=== PATIENT | male | born 1985 | race Caucasian/White ===

== ENCOUNTER 2020-01-14 22:16 | Inpatient (IN) | payer MEDICAID, SELFPAY ==
[2020-01-14 22:17] VITALS: BP 123/89; PULSE 96; RESP 18; TEMP 37.1; O2SAT 98; BMI 21.5
--- NOTE | 2020-01-14 22:18 | ECG_ITS ---
Measurements Intervals [place] Rate: 75 P: 68 TN: 135 QRS: 79 QRSD: 110 T: 58 QT: 381 QTc: 426 SINUS RHYTHM POSSIBLE LEFT ATRIAL ENLARGEMENT [-0.1mV P WAVE IN V1/V2] Compared to ECG 08/18/2019 11:44:47 No significant changes Electronically Signed On 01-16-2020 6:38:44 CDT by Jorden Ventura M.D. [email or web address]
--- NOTE | 2020-01-14 22:36 | ED_ITS ---
HPI - Psych General: Chief Complaint: Psychiatric Symptoms Stated Complaint: SI Time Seen by Provider: 01/14/20 22:18 History of Present Illness: HPI Narrative: Jose Daniel is brought in under a 96- hour hold. He is reported to be paranoid, suicidal and violent. Please see the affidavits in his chart for specifics. He presents to the ER for medical clearance. Patient has no complaints or concerns at this time. He denies any ingestions of any type of drugs or overdose. He does admit to some alcohol but not to excess. The patient appears clinically sober at this time. Review of Systems General: Reports: other (negative unless marked) Const: Denies: fever, chills, body aches, fatigue, malaise or diaphoresis Eyes: Denies: change in vision or blurry vision ENMT: Denies: throat pain, painful swallowing, hoarseness, ear pain, ear discharge, Change in hearing or nasal discharge Card: Denies: chest pain, palpitations, irregular heart rhythm, syncope, pre- syncope, shortness of breath on exertion or shortness of breath when lying down Resp: Denies: shortness of breath, productive cough, non-productive cough, wheezing, coughing up blood or chest congestion GI: Denies: abdominal pain, nausea, vomiting, vomiting blood, coffee grounds in vomit, diarrhea, constipation, cramping, blood in stool or black tarry stool : Denies: flank pain, difficulty urinating, painful urination, urinary frequency, urinary urgency, decreased urine ouput, urinary incontinence or blood in urine Musc: Denies: neck pain, back pain, extremity pain, extremity swelling, joint pain, joint swelling, joint warmth or joint stiffness Skin/Breast: Denies: rash, skin tenderness or yellow skin Neuro: Denies: headache, numbness in extremities, weakness in extremities, changes in sensation, lack of coordination, difficulty walking, dizziness, vertigo or confusion Endo: Denies: excessive thirst, tired all the time, cold intolerance, excessive sweating, flushing or hot flashes Meño/Lymph: Denies: easy bruising, easy bleeding, petechiae or enlarged lymph nodes All/Imm: Denies: hives, throat swelling, tongue swelling, facial swelling or acute wheezing PFS ED PFSH: Medical History (Updated 01/14/20 @ 23:35 by Vivien Bunch) No pertinent past medical history Social History Smoking and tobacco status: former smoker Physical Exam Const: COMMON NORMALS: no apparent distress, oriented x3, no limitations, healthy appearing and well nourished EXAM LIMITATIONS: no altered mental status GENERAL APPEARANCE: cooperative, well kempt and well developed ORIENTATION/CONSCIOUSNESS: Yes awake HENMT: COMMON NORMALS: normocephalic, head/scalp atraumatic, hearing grossly normal bilaterally, external ears normal, EAC's normal, external nose normal and moist oral mucous membranes HEAD & SCALP: normal to inspection, normocephalic and atraumatic FACE & SINUS: normal facial exam and face symmetric NOSE: external nose normal and nares normal EXTERNAL EAR: Yes external ears normal EXTERNAL AUDITORY CANAL: EAC's normal MOUTH: oral and palatal mucosa normal and tongue normal Eye: COMMON NORMALS: PERRL, EOMs intact bilaterally, conjunctivae normal and no scleral icterus GENERAL EYE: normal appearance of both eyes and normal light reflex CONJUNCTIVA: Yes conjunctivae normal SCLERA: sclerae normal CORNEA: Yes corneas normal PUPIL: Yes PERRL DIRECT OPHTHALMOSCOPY: Yes normal light reflex Neck/C-Spine: COMMON NORMALS: full ROM, no lymphadenopathy, supple, no meningeal signs and no JVD GENERAL: Yes normal visual inspection and Yes trachea midline CERVICAL SPINE: Yes cervical ROM normal Chest: COMMONS NORMALS: inspection of chest normal and palpation of chest normal Resp: COMMON NORMALS: normal respiratory effort, no retractions, no use of accessory muscles and clear to auscultation bilaterally EFFORT & INSPECTION: Yes able to speak in complete sentences AUSCULTATION: clear to auscultation bilaterally Cardio: COMMON NORMALS: no JVD, regular rate, regular rhythm, S1 normal heart sound, S2 normal heart sound, no gallops, no clicks, no murmurs and no rub JUGULAR VENOUS DISTENTION: no JVD RATE: regular rate RHYTHM: regular rhythm HEART SOUNDS: S1 normal and S2 normal GI: COMMON NORMALS: soft to palpation, non-tender, no hepatosplenomegaly and no masses INSPECTION: Yes normal to inspection PALPATION: Yes soft and Yes no hepatosplenomegaly : COMMON NORMALS: Yes no CVA tenderness BLADDER/KIDNEY EXAM: Yes no CVA tenderness Back/Pelvis: COMMON NORMALS: no CVA tenderness, thoracic and lumbar spine normal to inspection, no thoracic nor lumbar tenderness and thoraco-lumbar ROM normal Extremity: COMMON NORMALS: normal to inspection, full ROM, normal capillary refill, no joint enlargement, no clubbing, cyanosis or edema and no calf tenderness Neuro: COMMON NORMALS: oriented x3, CN's II-XII intact bilaterally, moves all extremities, no focal motor deficits and no sensory deficits noted MENINGEAL SIGNS: Yes no meningeal signs Psych: COMMON NORMALS: mental status grossly normal, thought process normal, cooperative, speech normal and activity/motor behavior normal APPEARANCE: Yes well kempt SPEECH: Yes normal speech MOOD & AFFECT: Yes elevated mood and Yes anxious THOUGHT PROCESS: normal thought process Skin: COMMON NORMALS: no rashes or lesions noted, skin turgor normal, no jaundice, no petechiae and no mottling GENERAL SKIN EXAM: no rashes or lesions noted and turgor normal MDM - Psych MDM Narrative: Medical decision making narrative: The case was reviewed with Dr. Flowers. He understands the patient is under 96-hour hold by the [facility]. He agrees to accept the patient to his service. Patient's liver enzymes are slightly elevated but this is likely due to alcohol there is no evidence of acetaminophen ingestion and the patient adamantly denies that at this time. Lab Data: Attestation: I reviewed the patient's lab results. Labs: Lab Results 01/14/20 01/14/20 01/14/20 Range/Units 22:40 22:40 22:40 WBC 5.3 (4.0-10.0) 10^3/ uL RBC 4.48 (4.1-5.3) 10^6/u L Hgb 13.2 (11.7-16.6) g/dL Hct 41.0 L (42.0-52.0) % MCV 91.5 (80-94) fL MCH 29.5 (28.0-34.0) pg MCHC 32.2 (30.0-36.0) g/dL RDW 12.8 (12.1-15.1) % Plt Count 242 (130-400) 10^3/c mm MPV 11.4 H (7.4-10.4) fL Neut % (Auto) 33.4 % Lymph % (Auto) 54.5 % [place] % (Auto) 7.0 % Eos % (Auto) 4.0 % Baso % (Auto) 0.9 % Neut # (Auto) 1.8 (1.8-7.7) 10^3/u L Lymph # (Auto) 2.9 (0.8-4.8) 10^3/u L [place] # (Auto) 0.4 (0.2-0.9) 10^3/u L Eos # (Auto) 0.2 (0.0-0.8) 10^3/u L Baso # (Auto) 0.1 (0.0-0.1) 10^3/u L Nucleated RBC % (a uto) 0 % Nucleated RBCs # 0.0 /100WBC Sodium 146 H (136-145) mmol/L Potassium 4.2 (3.5-5.1) mmol/L Chloride 105 (98-107) mmol/L Carbon Dioxide 29 (22-29) mmol/L Anion Gap 16.2 (5-19) BUN 9 (6-20) mg/dL Creatinine 0.8 (0.7-1.2) mg/dL GFR Calculation 110.0 (90-130) mL/min Glucose 97 (65-115) mg/dL Calculated Osmolal ity 298 H (285-295) mOsm/k g Calcium 10.1 (8.5-10.5) mg/dL Total Bilirubin 0.4 (0.15-1.2) mg/dL AST 41 H (0-40) U/L ALT 117 H (0-41) U/L Alkaline Phosphata se 69 (40-130) IU/L Total Protein 8.0 (6.6-8.7) g/dL Albumin 5.0 (3.5-5.2) g/dL Globulin 3.0 (1.3-4.6) g/dL TSH 1.17 (0.27-4.20) uIU/ mL Salicylates < 0.3 L (3-10) mg/dL Acetaminophen < 5.0 L (10-30) ug/mL Phenytoin 0.8 L (10-20) ug/mL Valproic Acid 2.8 L (50-100) mcg/mL Carbamazepine 2.0 L (4.0-12.0) ug/mL [place] 0.1 L (0.6-1.2) mmol/L Ethyl Alcohol 116 H (0-10) mg/dL EKG Data^: EKG 1: Attestation: I personally reviewed and interpreted this EKG as follows: EKG interpretation date: 01/14/20 EKG interpretation time: 23:29 Interpretation: Normal sinus rhythm at 75 beats a minute, nonspecific ST-T wave changes, no acute findings. Normal intervals, no blocks. Normal QTC. Discharge Plan Discharge Patient Disposition: Admitted As Inpatient Admit Provider: Giovanny Flowers Clinical Impression: Suicidal ideation, Acute psychosis Condition: Stable Discharge Date/Time: 01/15/20 00:26 Coding Level of Care Code ED Disability Program Navigator for Chg Fwd Exam Comprehensive
[2020-01-14 23:12] LABS: Basophils # 0.1 10^3/uL (0.0-0.1); Basophils % 0.9 %; Eosinophils # 0.2 10^3/uL (0.0-0.8); Hemoglobin 13.2 g/dL (11.7-16.6); Lymphocytes # 2.9 10^3/uL (0.8-4.8); Lymphocytes % 54.5 %; Mean Corpuscular HGB Conc 32.2 g/dL (30.0-36.0); Mean Corpuscular Hemoglobin 29.5 pg (28.0-34.0); Mean Corpuscular Volume 91.5 fL (80-94); Mean Platelet Volume 11.4 fL (7.4-10.4); Monocytes # 0.4 10^3/uL (0.2-0.9); Neutrophils # 1.8 10^3/uL (1.8-7.7); Neutrophils % 33.4 %; Nucleated Red Blood Cells % 0 %; Platelet Count 242 10^3/cmm (130-400); Red Blood Count 4.48 10^6/uL (4.1-5.3); Red Cell Distribution Width 12.8 % (12.1-15.1); White Blood Count 5.3 10^3/uL (4.0-10.0)
[2020-01-14 23:13] LABS: Lithium 0.1 mmol/L (0.6-1.2)
[2020-01-14 23:16] LABS: Alanine Aminotransferase 117 U/L (0-41); Alcohol Level 116 mg/dL (0-10); Alkaline Phosphatase 69 IU/L (40-130); Anion Gap 16.2 (5-19); Aspartate Amino Transferase 41 U/L (0-40); Blood Urea Nitrogen 9 mg/dL (6-20); Calcium 10.1 mg/dL (8.5-10.5); Carbon Dioxide 29 mmol/L (22-29); Chloride 105 mmol/L (98-107); Glucose 97 mg/dL (65-115); Osmolality Calculated 298 mOsm/kg (285-295); Phenytoin Dilantin 0.8 ug/mL (10-20); Potassium 4.2 mmol/L (3.5-5.1); Sodium 146 mmol/L (136-145); Thyroid Stimulating Hormone 1.17 uIU/mL (0.27-4.20); Total Bilirubin 0.4 mg/dL (0.15-1.2); Valproic Acid Level 2.8 mcg/mL (50-100)
[2020-01-14 23:17] LABS: Acetaminophen < 5.0 ug/mL (10-30); Salicylate < 0.3 mg/dL (3-10)
[2020-01-15 00:25] VITALS: BP 114/47; PULSE 81; RESP 18; TEMP 36.7; O2SAT 96
[2020-01-15 01:13] LABS: Amphetamines Screen Urine Negative (Negative); Barbiturates Screen Urine Negative (Negative); Benzodiazepines Screen Urine Negative (Negative); Cocaine Screen Urine Negative (Negative); Opiate Screen Urine Negative (Negative); PCP Screen Urine Negative (Negative); THC Screen Urine Negative (Negative)
[2020-01-15 06:00] VITALS: BP 123/86; PULSE 64; RESP 16; TEMP 36.6; O2SAT 96
[2020-01-15 07:04] LABS: Alanine Aminotransferase 93 U/L (0-41); Albumin Level 4.4 g/dL (3.5-5.2); Alkaline Phosphatase 61 IU/L (40-130); Anion Gap 13.1 (5-19); Aspartate Amino Transferase 32 U/L (0-40); Blood Urea Nitrogen 10 mg/dL (6-20); Calcium 9.3 mg/dL (8.5-10.5); Carbon Dioxide 30 mmol/L (22-29); Chloride 103 mmol/L (98-107); Globulin 2.4 g/dL (1.3-4.6); Glucose 95 mg/dL (65-115); Osmolality Calculated 290 mOsm/kg (285-295); Potassium 4.1 mmol/L (3.5-5.1); Sodium 142 mmol/L (136-145); Total Bilirubin 0.5 mg/dL (0.15-1.2); Total Protein 6.8 g/dL (6.6-8.7)
--- NOTE | 2020-01-15 10:06 | PM.NHP ---
Providers/Chief Complaint Admitting Physician: Giovanny Flowers MD Chief Complaint: SI HPI NPU History of Present Illness Jose Daniel Hogan is a 34 year old male who presents today reporting that he does not know why he is here. He reports that he lives in a house with his mom and his children, and that the reason why he thinks conflict was started was because his brother recently came home from longterm and has been coming around. And since his daughter got taken away from her mother and placed with his mother, he has felt a lot of responsibility to make sure there are not negative influences around them. The emergency room, however, identified that he is having an experience somewhat like his last experience here, wherein he was feeling some weird electricity charges and thinking they were coming through his body and recently, reportedly, he has been taking wires out of cars in some response to this. He does not acknowledge any of this reality. He reports that his brother had not been around so he thought things were going better, but he has a sister that, he reports, is an instigator and she was getting in the middle of everything and interrupting their plans. He said his children need to go over to [facility] [place] to be evaluated. He reports that he is not sure what happened the last time he was here. He denies any symptoms and denies any changes in his current status. We reviewed his last note from July of 2019 and excerpts can be found below; he identifies there have been no significant changes in his psycho-social circumstances and that those excerpts are a factual representation of his current circumstance. PSYCHIATRIC HISTORY: As above. He reports that he has had a couple of hospitalizations, this may be the second or third, but he is not sure. He denies ever really being on significant medications. SUBSTANCE ABUSE HISTORY: He denies. He reports that he does not smoke or drink alcohol, or anything of that nature, however, it is worth noting that his blood alcohol level was 116, but he was not positive for amphetamines, as he had been at his last visit in July. FAMILY HISTORY: He denies any significant mental health history in his family. DEVELOPMENTAL HISTORY: He denies any issues. He reports that he learned how to walk and talk and met all developmental milestones on time. He denies speech therapy, learning support, emotional support, or special education classes. PSYCHOSOCIAL HISTORY: He reports his parents were together until he was 3 years old. He reports that they had seven children together. He reports his childhood was fine. He reports the highest grade he achieved was the eighth grade, and he has never gotten his GED. He endorses being a heterosexual, with his longest relationship being eleven years. He has been three time, twice to the same woman, and twice. He endorses he has three daughters, ages 15, 13, and 10, and a son who is 4 years old, all of whom are with him. He has never been in the . He denies any latter-day belief system. He reports that his longest job was in [employer] for about eight or nine yers. He reports he lives in a house with his mother and four children LEGAL HISTORY: He reports he has been to care home more times than he could count. Per his last [facility] [place] [facility] visit: Discharge Summary Date of Admission: Aug 18, 2019 at 05:14 Discharge Date: Aug 20, 2019 Attending Physician: Darci Sepulveda MD Consulting Physician(s): Admission Diagnosis: Amphetamine intoxication Other Discharge Diagnoses: Amphetamine intoxication?resolved Brief History: History of present illness: Jose Daniel Hogan is a 34-year-old man who is encountered laying in his bed on the Neuropsych Unit fast asleep. He is resting comfortably and in no apparent distress. However he is unarousable either by verbal or mechanical stimuli. Information about the patient is limited to that below: There are no collateral records in the medical record. There is no emergency room note. There is an affidavit for commitment in his chart that reads as follows: On 08/18/2019, myself and deputy Callie Noyola respond to her residence in [place] and made contact with Ben. Ben was attempting to forcefully put a yellow ball up his rectum. Jono stated he must do this to stop the electrical charge going through him. Ben was sweating profusely and appeared to be heavily under the influence. Jose Daniel made several statements that lead me to believe he was hallucinating. A family member of Ben's believed he consumed a large amount of prescription medications. Hospital Course: Patient states that he is doing fine today. He says that he occasionally uses methamphetamine but it is not a problem for him. He denies symptoms of amphetamine intoxication or withdrawal. In reviewing reasons for him being in the hospital, he did not want to hear what was written down on his affidavits. He seemed embarrassed at that point. By his report, he was cleansing his colon. He said that he was responding to a challenge by a another friend or family member. He was in the process of cleaning his colon. One people came in, he got scared and made up a story. He denies any history of suicidal or homicidal ideation. He denies any prior history of bizarre or psychotic episodes while taking amphetamines. He said I don't do it very much. He said that in general things are going pretty well for him. He really doesn't need any help in terms of psychiatric or psychotherapeutic care. He reports a negative health history of any kind. He has never seen a psychiatrist. He has never been in the hospital. He has never seen a therapist. He is then confronted by the fact that there are records in the chart indicating that he saw a therapist on 5 episodes last summer that apparently were court ordered his son into state custody. He then became somewhat embarrassed and refused to discuss this further. He states that he is currently living with his mother. 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 He has 3 daughters to a mother in [place] who is evil . He does not see them often because she wants him to pay child support and he can't. He has a son here in [place] and says that they are fine. Objective: The patient is in no apparent physical distress. His eye contact initially is good but as the interview progresses and he is caught in contradiction to lies, he becomes embarrassed and eye contact is poor. There is no attention to internal stimuli. Records indicate that he saw a therapist on 5 occasions in [address] because of his son being in state custody. There are no further details and the patient is not offering any. PLAN: Patient specifically requests no medications be initiated. On hospital day #3, the patient proceeded for discharge as tomorrow in [place] that would determine that his presentation with his children and child custody. This was confirmed by reviewing the public record. He was not an imminent risk to self or others and was permitted to be discharged. Meds NPU Home Medications Medication Instructions Recorded Confirmed Type No Known Home Medications 01/14/20 01/14/20 History Allergies Allergy/AdvReac Type Severity Reaction Status Date / Time No Known Allergies Allergy Verified 01/14/20 22:23 PFS NPU PFSH: Medical History (Updated 01/14/20 @ 23:35 by Vivien Bunch) No pertinent past medical history Social History Smoking and tobacco status: former smoker Mental Status Exam MSE Comments: This is a well-nourished, well-developed, white male, with adequate dress, grooming, and eye contact. No abnormal movements, except for mild psychomotor retardation. Cooperative with exam in no acute distress. Speech was decreased rate and volume. Mood described as alright; affect congruent. Thought process, organized. Thought content: patient denied any suicidal or homicidal ideation, there were no delusions reported or noted, patient denied any auditory or visual hallucinations. Attention, concentration, and memory appear intact but were not formally tested. He is alert and oriented times three. Insight and judgment are impaired. Vitals/I&O/Wt Last Vital Signs Temp 97.9 F 01/15/20 06:00 Pulse 64 01/15/20 06:00 Resp 16 01/15/20 06:00 BP 123/86 01/15/20 06:00 Pulse Ox 96 01/15/20 06:00 Weight last 48 hrs Weight 68.039 kg Data NPU : 01/14/20 22:40 01/15/20 06:40 A&P Assessment and plan (1) Acute psychosis: ASSESSMENT AND DIAGNOSIS: This is a 34 year old, white male, who presents reporting that there are no issues, as he presents on a 96-hour hold, but his family reports that he has been having a recurrence of his electronically driven delusions about electrical currents going through his body, and he denies that there is anything like that going on. Continue current medications. Will work to see if he would be willing to take an anti-psychotic like Abilify. Encourage individual and milieu therapy. Continue q-15 minute checks for safety. We will work with social work to get collateral information to understand exactly what is going on. Status: Acute (2) Suicidal ideation: Status: Acute Involuntary Hold Information 96 Hour Hold: 96 Hour Involuntary Admission: Yes 96 Hour Hold Ending Date: 01/20/20 96 Hour Hold Ending Time: 22:16 Attestations NPU Medical Necessity Statement*: Inpatient hospitalization is medically necessary and the clinically appropriate intervention at this time. Patient will be in the hospital for over two midnights. We will evaluate medications for their effectiveness and introduce as indicated. Likely length of stay is three to five days. Coding Level of Care Code Acute Legal Administrative Secretary for Nehemiah Rojasd Diagnoses Acute psychosis F23 Suicidal ideation R45.851
[2020-01-15 14:00] VITALS: BP 106/65; PULSE 80; RESP 18; TEMP 36.9; O2SAT 98
[2020-01-15 21:42] VITALS: BP 123/82; PULSE 69; RESP 18; TEMP 36.9; O2SAT 98
[2020-01-16 06:00] VITALS: BP 114/71; PULSE 68; RESP 17; TEMP 36.6; O2SAT 95
--- NOTE | 2020-01-16 11:49 | P.PN_ITS ---
Subjective NPU Subjective: Interval history: Jose Daniel presented today very frustrated and at different times angry, at different times seeming paranoid, at times agreeing to a trial of medication, and then ultimately refusing a trial of medication reporting that he wants to keep his body clean, and talking about how he showers less to avoid contaminates in the water that he drinks. He does not drink water from certain things because of aluminum sources and that he wants to keep his body clean and that giving him the medication would somehow disrupt that, and that he would have to take months to cleanse his body. He attempted to give explanations for his obsession with this electrical issue and was upset because we did speak with his mother and his mother said lots of really positive things about him as a father, but did say there were some times that he made comments about voices coming from things or whatever which does worry her. He continues to be focused on the fact that he has family members, he reports, are drug addicts that will be around his children since he is here but would not consider the Abilify trial that I was recommending. As far as his drug screen, he endorsed that when he came here months ago that he had made some bad choices but he has not done that recently, so then he was stuck on the idea that if there was something in his screen, that people were putting that in the system and he wanted to get blood samples and hair samples along with his brother and his brother?s girlfriend. Mental Status Exam MSE Comments: This is a well-nourished, well-developed, slender, white male, with adequate dress, grooming, and eye contact. No abnormal movements except for mild psychomotor retardation. Semi-cooperative with exam in mild distress. Speech was normal rate and decreased volume. Mood described as ?I am fine?; affect a little odd at times. Thought process, organized. Thought content: patient denied any suicidal or homicidal ideation, there were no delusions reported but some paranoia and persecutory thinking exists, but they are hard to tease out given the areas of his ?paranoia? are related to his children and the other issues are ever so slight. He denied any auditory or visual hallucinations. Attention and concentration were intact, and memory appears reliable, but none were formally tested. Alert and oriented times three. Insight and judgment are limited. Vitals/I&O/Wt Last Vital Signs Temp 98.5 F 01/16/20 20:58 Pulse 74 01/16/20 20:58 Resp 17 01/16/20 20:58 BP 124/80 01/16/20 20:58 Pulse Ox 97 01/16/20 20:58 Data NPU : 01/14/20 22:40 01/15/20 06:40 A&P Additional A&P Information (1) Acute psychosis: ASSESSMENT AND DIAGNOSIS: This is a 34 year old, white male, who presents reporting that there are no issues, as he presents on a 96-hour hold, but his family reports that he has been having a recurrence of his electronically driven delusions about electrical currents going through his body, and he denies that there is anything like that going on. Continue current medications. Encourage individual and milieu therapy. Continue q-15 minute checks for safety. We will work with social work to get collateral information to understand exactly what is going on. (2) Suicidal ideation: Involuntary Hold Information 96 Hour Hold: 96 Hour Involuntary Admission: Yes 96 Hour Hold Ending Date: 01/20/20 96 Hour Hold Ending Time: 22:16 Attestations NPU Medical Necessity Statement*: Inpatient hospitalization is medically necessary and the clinically appropriate intervention at this time. We will evaluate medi cations for their effectiveness and introduce as indicated. Likely length of stay is 2-4 days. Coding Level of Care Code Acute Civil Project Engineer for Nehemiah Neely
[2020-01-16 13:15] VITALS: BP 119/77; PULSE 74; RESP 18; TEMP 36.7; O2SAT 98
[2020-01-16 20:58] VITALS: BP 124/80; PULSE 74; RESP 17; TEMP 36.9; O2SAT 97
[2020-01-17 06:00] VITALS: BP 109/72; PULSE 60; RESP 16; TEMP 36.6; O2SAT 98
--- NOTE | 2020-01-17 10:18 | P.PN_ITS ---
Subjective NPU Subjective: Interval history: The patient presents today continuing to be frustrated with the system. All of the calls he made in an attempt to try to help his kids get out of the situation he feels they are in, were ineffective. He did during the conversation make some odd comments that are starting to make one lean towards thinking that there might be some occult psychosis that is brewing under the surface. He continues to refuse consideration of medication and continues to say that he would rather just stay for a month if he could avoid taking medication. Mental Status Exam MSE Comments: This is a well-nourished, well-developed, white male, with adequate dress, grooming, and limited eye contact. No abnormal movements. Semi- cooperative with exam in mild distress. Speech was normal rate, decreased volume. Mood described as okay; affect irritable. Thought process, organized for the most part. Thought content: patient denied any suicidal or homicidal ideation, there were no delusions reported, but he seems to have some slight paranoia and persecutory thinking, some possible conspiracy kind of theories about medical and chemical type things. He denied any auditory or visual hallucinations. Attention and concentration were intact, and memory is unreliable, but none were formally tested. Alert and oriented times person and place. Insight and judgment are limited/impaired. Vitals/I&O/Wt Last Vital Signs Temp 98.2 F 01/17/20 21:41 Pulse 72 01/17/20 21:41 Resp 17 01/17/20 21:41 BP 110/72 01/17/20 21:41 Pulse Ox 98 01/17/20 21:41 Data NPU : 01/14/20 22:40 01/15/20 06:40 A&P Additional A&P Information (1) Acute psychosis: This is a 34 year old, white male, who presents reporting that there are no issues, as he presents on a 96-hour hold, but his family reports that he has been having a recurrence of his electronically driven delusions about electrical currents going through his body, and he denies that there is anything like that going on. Continue current medications. Encourage individual and milieu therapy. Continue q-15 minute checks for safety. We will work with social work to get collateral information to understand exactly what is going on. (2) Suicidal ideation: Involuntary Hold Information 96 Hour Hold: 96 Hour Involuntary Admission: Yes 96 Hour Hold Ending Date: 01/20/20 96 Hour Hold Ending Time: 22:16 Attestations NPU Medical Necessity Statement*: Inpatient hospitalization is medically necessary and the clinically appropriate intervention at this time. We will evaluate medications for their effectiveness and introduce as indicated. Likely length of stay is 2-4 days. Coding Level of Care Code Acute Software Qa System Specialist for Nehemiah Neely
[2020-01-17 13:11] VITALS: BP 134/92; PULSE 84; RESP 18; TEMP 37; O2SAT 98
[2020-01-17 21:41] VITALS: BP 110/72; PULSE 72; RESP 17; TEMP 36.8; O2SAT 98
[2020-01-18 06:00] VITALS: BP 110/72; PULSE 72; RESP 17; TEMP 36.8; O2SAT 98
[2020-01-18 06:23] VITALS: BP 111/78; PULSE 66; RESP 18; TEMP 36.4; O2SAT 97
[2020-01-18 13:30] VITALS: BP 122/77; PULSE 82; RESP 18; TEMP 37.2; O2SAT 98
--- NOTE | 2020-01-18 19:54 | PM.NPN ---
Subjective NPU Subjective: Interval history: Jose Daniel presents today reporting that he is doing okay. He is still frustrated about being here but is accepting as he could be about the situation. He says that he has spoken to his daughter and his girlfriend. He gave me permission to speak to the girlfriend to get her take on the situation. We talked about his move to [place] in 1992 and some of the family dynamics at play, as his mother came over here with her seven children and they first started in [place], [place]. He made some odd references to why they came to [facility], which he could not really explain but ultimately kept pleading the case that he is totally normal without any issues and does not need medication. Mental Status Exam MSE Comments: This is a well-nourished, well-developed, white male, with adequate dress, grooming, and eye contact. No abnormal movements except for mild psychomotor retardation. Cooperative with exam in no acute distress. Speech was normal rate and volume. Mood described as fine except for being here; affect less irritable. Thought process, mostly organized. Thought content: patient denied any suicidal or homicidal ideation, there were no delusions reported. He still seems to have some paranoia that could represent Cluster A conspiracy theory type thing versus some quiet psychosis. He denied any auditory or visual hallucinations. Attention and concentration appear intact and memory seems unreliable, but none were formally tested. Alert and oriented times person and place. Insight and judgment are limited. Vitals/I&O/Wt Last Vital Signs Temp 98.9 F 01/18/20 13:30 Pulse 82 01/18/20 13:30 Resp 18 01/18/20 13:30 BP 122/77 01/18/20 13:30 Pulse Ox 98 01/18/20 13:30 Data NPU : 01/14/20 22:40 01/15/20 06:40 A&P Additional A&P Information (1) Acute psychosis: This is a 34 year old, white male, who presents reporting that there are no issues, as he presents on a 96-hour hold, but his family reports that he has been having a recurrence of his electronically driven delusions about electrical currents going through his body, and he denies that there is anything like that going on. Continue current medications. Encourage individual and milieu therapy. Continue q-15 minute checks for safety. We will work with social work to get collateral information to understand exactly what is going on. (2) Suicidal ideation: Involuntary Hold Information 96 Hour Hold: 96 Hour Involuntary Admission: Yes 96 Hour Hold Ending Date: 01/20/20 96 Hour Hold Ending Time: 22:16 Attestations NPU Medical Necessity Statement*: Inpatient hospitalization is medically necessary and the clinically appropriate intervention at this time. We will evaluate medications for their effectiveness and introduce as indicated. Likely length of stay is 1-3 days. Coding Level of Care Code Acute Salesperson Burial Plots for Nehemiah Neely
[2020-01-18 22:00] VITALS: BP 114/67; PULSE 75; RESP 22; TEMP 37.1; O2SAT 98
[2020-01-19 06:00] VITALS: BP 99/57; PULSE 66; RESP 17; TEMP 36.7; O2SAT 98
[2020-01-19 12:50] VITALS: BP 123/77; PULSE 91; RESP 17; TEMP 37.1; O2SAT 100
--- NOTE | 2020-01-19 15:37 | P.PN_ITS ---
Subjective NPU Subjective: Interval history: Jose Daniel presents today continuing to hold to his story that there are no issues or problems after initial irritability with having to stay. He has managed being kept without a desire for being here fairly well without concerns. He continues to identify that he is not interested in a medication trial and feels that he has approaches to stay healthy that he can utilize and that he just needs to avoid some of the individuals that have been challenging to him. We discussed him utilizing resources that will be put in place by the treatment team tomorrow and discussed the possibility of discharge tomorrow if he continues to show no signs of acute psychosis or distress. Mental Status Exam MSE Comments: This is a well-nourished, well-developed, white male, with adequate dress, grooming, and eye contact. No abnormal movements except for improving mild psychomotor retardation. Cooperative with exam in no acute distress. Speech was more normal rate and volume. Mood described as better; affect less irritable. Thought process, organized. Thought content: patient denied any suicidal or homicidal ideation, there were no delusions reported. He still seems to have slight paranoia or conspiracy theory baseline which could represent Cluster A pathology. Patient denied any auditory or visual hallucinations. Attention, concentration, and memory appeared intact but were not formally tested. Alert and oriented times person, place and purpose but he does not agree with the purpose. Insight and judgment are limited but improving. Vitals/I&O/Wt Last Vital Signs Temp 98.8 F 01/19/20 12:50 Pulse 91 01/19/20 12:50 Resp 17 01/19/20 12:50 BP 123/77 01/19/20 12:50 Pulse Ox 100 01/19/20 12:50 Weight last 48 hrs Weight 72.665 kg Data NPU : 01/14/20 22:40 01/15/20 06:40 A&P Additional A&P Information (1) Acute psychosis: This is a 34 year old, white male, who presents reporting that there are no issues, as he presents on a 96-hour hold, but his family reports that he has been having a recurrence of his electronically driven delusions about electrical currents going through his body, and he denies that there is anything like that going on. Continue current medications. Encourage individual and milieu therapy. Continue q-15 minute checks for safety. We will work with social work to get collateral information to understand exactly what is going on. (2) Suicidal ideation: Involuntary Hold Information 96 Hour Hold: 96 Hour Involuntary Admission: Yes 96 Hour Hold Ending Date: 01/20/20 96 Hour Hold Ending Time: 22:16 Attestations NPU Medical Necessity Statement*: Inpatient hospitalization is medically necessary and the clinically appropriate intervention at this time. We will evaluate med ications for their effectiveness and introduce as indicated. Likely length of stay is 1-3 days.Likely discharge tomorrow. Coding Level of Care Code Acute Audiology Director for Nehemiah Neely
[2020-01-19 21:26] VITALS: BP 119/76; PULSE 81; RESP 21; TEMP 37; O2SAT 97
--- NOTE | 2020-01-19 23:03 | PC.NURSE ---
Pt offered sleeping med but refused.
[2020-01-20 06:00] VITALS: BP 99/66; PULSE 62; RESP 18; TEMP 36.7; O2SAT 98
--- NOTE | 2020-01-20 11:47 | P.DS_ITS ---
Diagnoses at Discharge Discharge Diagnosis (1) Acute psychosis: Status: Acute (2) Suicidal ideation: Status: Resolved Reason for Visit Reason for Visit: Reason For Visit: SI Brief History: HPI NPU History of Present Illness Jose Daniel Hogan is a 34 year old male who presents today reporting that he does not know why he is here. He reports that he lives in a house with his mom and his children, and that the reason why he thinks conflict was started was because his brother recently came home from custodial and has been coming around. And since his daughter got taken away from her mother and placed with his mother, he has felt a lot of responsibility to make sure there are not negative influences around them. The emergency room, however, identified that he is having an experience somewhat like his last experience here, wherein he was feeling some weird electricity charges and thinking they were coming through his body and recently, reportedly, he has been taking wires out of cars in some response to this. He does not acknowledge any of this reality. He reports that his brother had not been around so he thought things were going better, but he has a sister that, he reports, is an instigator and she was getting in the middle of everything and interrupting their plans. He said his children need to go over to [facility] to be evaluated. He reports that he is not sure what happened the last time he was here. He denies any symptoms and denies any changes in his current status. We reviewed his last note from July of 2019 and excerpts can be found below; he identifies there have been no significant changes in his psycho-social circumstances and that those excerpts are a factual representation of his current circumstance. PSYCHIATRIC HISTORY: As above. He reports that he has had a couple of hospitalizations, this may be the second or third, but he is not sure. He denies ever really being on significant medications. SUBSTANCE ABUSE HISTORY: He denies. He reports that he does not smoke or drink alcohol, or anything of that nature, however, it is worth noting that his blood alcohol level was 116, but he was not positive for amphetamines, as he had been at his last visit in July. FAMILY HISTORY: He denies any significant mental health history in his family. DEVELOPMENTAL HISTORY: He denies any issues. He reports that he learned how to walk and talk and met all developmental milestones on time. He denies speech therapy, learning support, emotional support, or special education classes. PSYCHOSOCIAL HISTORY: He reports his parents were together until he was 3 years old. He reports that they had seven children together. He reports his childhood was fine. He reports the highest grade he achieved was the eighth grade, and he has never gotten his GED. He endorses being a heterosexual, with his longest relationship being eleven years. He has been three time, twice to the same woman, and d ivorced twice. He endorses he has three daughters, ages 15, 13, and 10, and a son who is 4 years old, all of whom are with him. He has never been in the . He denies any mandaeism belief system. He reports that his longest job was in [employer] for about eight or nine yers. He reports he lives in a house with his mother and four children LEGAL HISTORY: He reports he has been to correction more times than he could count. Per his last [facility] visit: Discharge Summary Date of Admission: Aug 18, 2019 at 05:14 Discharge Date: Aug 20, 2019 Attending Physician: Darci Sepulveda MD Consulting Physician(s): Admission Diagnosis: Amphetamine intoxication Other Discharge Diagnoses: Amphetamine intoxication?resolved Brief History: History of present illness: Jose Daniel Hogan is a 34-year-old man who is encountered laying in his bed on the Neuropsych Unit fast asleep. He is resting comfortably and in no apparent distress. However he is unarousable either by verbal or mechanical stimuli. Information about the patient is limited to that below: There are no collateral records in the medical record. There is no emergency room note. There is an affidavit for commitment in his chart that reads as follows: On 08/18/2019, myself and deputy Callie Noyola respond to her residence in [place] and made contact with Ben. Ben was attempting to forcefully put a yellow ball up his rectum. Jono stated he must do this to stop the electrical charge going through him. Ben was sweating profusely and appeared to be heavily under the influence. Jose Daniel made several statements that lead me to believe he was hallucinating. A family member of Ben's believed he consumed a large amount of prescription medications. Hospital Course: Patient states that he is doing fine today. He says that he occasionally uses methamphetamine but it is not a problem for him. He denies symptoms of amphetamine intoxication or withdrawal. In reviewing reasons for him being in the hospital, he did not want to hear what was written down on his affidavits. He seemed embarrassed at that point. By his report, he was cleansing his colon. He said that he was responding to a challenge by a another friend or family member. He was in the process of cleaning his colon. One people came in, he got scared and made up a story. He denies any history of suicidal or homicidal ideation. He denies any prior history of bizarre or psychotic episodes while taking amphetamines. He said I don't do it very much. He said that in general things are going pretty well for him. He really doesn't need any help in terms of psychiatric or psychotherapeutic care. He reports a negative health history of any kind. He has never seen a psychiatrist. He has never been in the hospital. He has never seen a therapist. He is then confronted by the fact that there are records in the chart indicating that he saw a therapist on 5 episodes last summer that apparently were court ordered his son into state custody. He then became somewhat embarrassed and refused to discuss this further. He states that he is currently living with his mother. 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 He has 3 daughters to a mother in [place] who is evil . He does not see them often because she wants him to pay child support and he can't. He has a son here in [place] and says that they are fine. Objective: The patient is in no apparent physical distress. His eye contact initially is good but as the interview progresses and he is caught in contradiction to lies, he becomes embarrassed and eye contact is poor. There is no attention to internal stimuli. Records indicate that he saw a therapist on 5 occasions in [address] because of his son being in state custody. There are no further details and the patient is not offering any. PLAN: Patient specifically requests no medications be initiated. On hospital day #3, the patient proceeded for discharge as tomorrow in [place] that would determine that his presentation with his children and child custody. This was confirmed by reviewing the public record. He was not an imminent risk to self or others and was permitted to be discharged. Hospital Course Hospital Course Jose Daniel presented to the emergency room on a 96-hour hold that endorsed paranoia suicidal tendency and possible violence. He was admitted to the neuropsychiatric unit for evaluation of those concerns. He has been admitted here before and there are similar issues but he continues to not demonstrate marissa psychosis but may certainly have para-psychotic thinking that might be consistent with a cluster a personality disorder. He was not interested in medication and generally talked about medications and many other things in a conspiracy theory type concerned about that option. He also had conspiracy theory type vibes related to the challenges in his psychosocial arena. He was resistant to medication and so he was just observed for the period of the 96- hour hold. Additionally he had general medical evaluation which was also within normal limits and revealed no new acute processes outside of intoxication and withdrawal. Discharge Summary At the time of discharge, he denied any lethality and was absent psychosis, but still had thoughts about different subject matter which bordered on paranoid. Mood and anxiety were well managed and he endorsed a plan to avoid all drugs of abuse, and follow-up with the recommended post hospital services, but was somewhat resistant to mental health referrals which raised some concerns. He was evaluated and deemed to be absent credible lethality and had received the maximum benefit from an inpatient hospitalization, so was discharged. Involuntary Hold Information 96 Hour Hold: 96 Hour Involuntary Admission: Yes 96 Hour Hold Ending Date: 01/20/20 96 Hour Hold Ending Time: 22:16 Mental Status Exam MSE Comments: This is a well-nourished, well-developed, white male, with adequate dress, grooming, and eye contact. No abnormal movements except for improving mild psychomotor retardation. Cooperative with exam in no acute distress. Speech was more normal rate and volume. Mood described as pretty good; affect less irritable. Thought process, organized. Thought content: patient denied any suicidal or homicidal ideation, there were no delusions reported. He still seems to have slight paranoia or conspiracy theory baseline which could represent Cluster A pathology. Patient denied any auditory or visual hallucinations. Attention, concentration, and memory appeared intact but were not formally tested. Alert and oriented times person, place and purpose but he does not agree with the purpose. Insight and judgment are improving. Discharge Data Vitals: Last Vital Signs Temp 98.1 F 01/20/20 06:00 Pulse 62 01/20/20 06:00 Resp 18 01/20/20 06:00 BP 99/66 01/20/20 06:00 Pulse Ox 98 01/20/20 06:00 Discharge Plan Discharge Patient Disposition: Home, Self-Care Condition: Stable Prescriptions: Continued No Known Home Medications RF: 0 Discharge Orders: Discharge Order (Routine); Ordered 01/20/20 Ordered By: Giovanny Flowers Referrals: [facility] [Outside] - 4-7 days (Call for an assessment to be scheduled. ) Discharge Diet: Regular Discharge Activity: Resume usual activity Discharge Date/Time: 01/20/20 12:50 Discharge Attestations NPU Time Spent in Discharge Care*: less than 30 min Specific Discharge Activities: Specific discharge activities: educating patient, discussing with case hardener/social workers/dc planners, documenting/other paperwork and evaluating patient/reviewing data Coding Level of Care Code Acute Graphite Mill Operator for Nehemiah Fwd Diagnoses Acute psychosis F23 Suicidal ideation R45.851
[2020-01-20 11:51] VITALS: BP 99/66; PULSE 62; RESP 18; TEMP 36.7; O2SAT 98
== END 2020-01-20 12:50 | disposition home or self-care (01) | DRG 885 ==
LOC: ER 23:35 → NP 23:47
PROVIDERS: Admitting Provider Psychiatry & Neurology Psychiatry; Emergency Provider Emergency Medicine; Visit Provider Psychiatry & Neurology Psychiatry
DX: F23 Brief psychotic disorder (principal); R45.851 Suicidal ideations
CPT/HCPCS: 12345; 36415; 80053; 80156; 80164; 80178; 80185; 80306; 80307; 84443; 85025; 93005; 99284

== ENCOUNTER → 2020-08-14 07:36 | Outpatient (BNVA) | payer MEDICAID, SELFPAY | PROVIDERS: Visit Provider Counselor Mental Health | DX: F15.10 Other stimulant abuse, uncomplicated (principal) | CPT/HCPCS: 90834 ==

== ENCOUNTER → 2020-09-01 08:13 | Outpatient (BNVA) | payer MEDICAID, SELFPAY | PROVIDERS: Visit Provider Counselor Mental Health | DX: F15.21 Other stimulant dependence, in remission (principal) | CPT/HCPCS: 90832 ==

== ENCOUNTER 2021-01-16 10:27 | Emergency (ER) | payer MEDICAID, SELFPAY ==
[2021-01-16 10:59] VITALS: BP 119/87; PULSE 88; RESP 18; TEMP 36.8; O2SAT 98; BMI 22.9
--- NOTE | 2021-01-16 11:17 | PC.NURSE ---
Pt refusing tetanus shot despite lengthy discussion of risks of not taking vaccine and possibility of .
--- NOTE | 2021-01-16 11:55 | ED_ITS ---
HPI - Eye Problem General: Chief complaint: Eye Problems Stated complaint: EYE ISSUES Time Seen by Provider: 01/16/21 10:59 Source: patient Mode of arrival: ambulatory Limitations: no limitations History of Present Illness: HPI Narrative: 35-year-old male patient presents to the emergency department with right eye foreign body. States was grinding metal yesterday when he felt a piece of metal in his eye. Denies visual difficulty, reports sensation of foreign body, he does not engage or receive tetanus shots/immunizations due to nondenominational preference. chief complaint: eye injury and foreign body Onset (ago): day(s) (Occurred yesterday at 10:30 AM) Location: right eye Place: work Associated symptoms: Reports no associated symptoms; Denies fever(s), headache(s), nausea, neck pain or vomiting Treatments Prior to Arrival: none Review of Systems General: Reports: 10 or more systems reviewed and unremarkable except in HPI and below Const: Denies: fever(s), chills, body aches, fatigue, malaise or diaphoresis Eyes: Reports: blurry vision, eye discomfort, eye discharge (Clear) and increased production of tears; Denies: eye redness, yellow eyes or seeing flashes ENMT: Denies: throat pain, dental pain or disequilibrium Card: Denies: chest pain, palpitations, irregular heart rhythm, swelling of feet/ankles, dyspnea on exertion or orthopnea Resp: Denies: dyspnea, productive cough, non-productive cough or wheezing GI: Denies: abdominal pain, nausea or vomiting : Denies: dysuria Musc: Denies: neck pain, back pain, joint pain or joint warmth Skin/Breast: Denies: rash or pruritus Neuro: Denies: headache(s), weakness in extremities or behavioral changes Meño/Lymph: Denies: easy bruising PFSH ED PFSH: Medical History No pertinent past medical history Social History Smoking and tobacco status: former smoker Current gender identity: Male Physical Exam Const: COMMON NORMALS: no acute distress, patient oriented x3, healthy appearing, alert and well nourished EXAM LIMITATIONS: no altered mental status and no physical limitations GENERAL APPEARANCE: cooperative, comfortable, well kempt, well developed and well hydrated; not anxious and not ill appearing NUTRITIONAL APPEARANCE: thin ORIEN TATION/CONSCIOUSNESS: Yes awake, Yes oriented to person, Yes oriented to place and Yes oriented to time HENMT: COMMON NORMALS: normocephalic, atraumatic, Normal external nose present and moist oral mucous membranes HEAD & SCALP: normal to inspection, normocephalic and atraumatic; no laceration and no scalp tenderness FACE & SINUS: normal facial exam, sinuses nontender and face symmetric NOSE: Normal external nose present, Normal nares present and No nasal polyps present Eye: COMMON NORMALS: EOMs intact bilaterally and conjunctivae normal GENERAL EYE: appearance normal, both eyes and all related structures and normal light reflex VISUAL MALONEY: No peripheral vision loss and No central vision loss ALIGNMENT: Yes alignment normal PERIORBITAL: periorbital findings normal EYELID: eyelids normal CONJUNCTIVA: Yes conjunctivae normal SCLERA: scleral abnormal Laterality of scleral abnormality: positive right foreign body (Small, 6:00) CORNEA: Yes fluorescein used (No further foreign bodies appreciated, corneal abrasion surrounding metal, ) PUPIL: Yes Other pupil findings (Circular abrasion surrounding metal) DIRECT OPHTHALMOSCOPY: Yes normal light reflex Neck/C-Spine: COMMON NORMALS: full ROM and no lymphadenopathy GENERAL: Yes normal visual inspection and Yes trachea midline CERVICAL SPINE: Yes cervical ROM normal Lymph: LYMPHATIC: no lymphadenopathy noted Chest: COMMONS NORMALS: normal inspection of the chest Resp: COMMON NORMALS: normal respiratory effort and clear to auscultation bilaterally AUSCULTATION: clear to auscultation bilaterally Cardio: COMMON NORMALS: regular rhythm, S1 normal heart sound present and S2 normal heart sound present RHYTHM: regular rhythm HEART SOUNDS: S1 normal heart sound present and S2 normal heart sound present GI: COMMON NORMALS: Soft to palpation and non-tender INSPECTION: Yes normal to inspection PALPATION: Yes Soft to palpation : COMMON NORMALS: Yes no CVA tenderness BLADDER/KIDNEY EXAM: Yes no CVA tenderness Back/Pelvis: COMMON NORMALS: no CVA tenderness and thoracic and lumbar spine normal to inspection Extremity: COMMON NORMALS: normal to inspection and capillary refill normal Neuro: COMMON NORMALS: patient oriented x3 and no focal motor deficits SENSORIUM/ORIENTATION: Yes alert, Yes oriented to person, Yes oriented to place and Yes oriented to time Psych: COMMON NORMALS: mental status grossly normal, Normal thought process present and cooperative APPEARANCE: Yes well kempt ACTIVITY/MOTOR BEHAVIOR: Yes appropriate eye contact THOUGHT PROCESS: Normal thought process present Skin: COMMON NORMALS: no rashes or lesions noted and turgor normal GENERAL SKIN EXAM: no rashes or lesions noted and turgor normal Procedures FB Removal Eye Time Out performed: Yes Location: eye (R) Topical anesthetic used: tetracaine Foreign body: metal Evidence of corneal penetration: Yes Technique: irrigation, cotton tip swab, needle and electric anastacia Procedure performed under: direct visualization with magnification Post-procedure medication: topical anesthetic Patient tolerated procedure: well Complications: residual rust ring and corneal penetration Course ED course: 35-year-old male patient presents to the emergency department with 24-hour residual metal to the right eye. Rust ring was present, I was able to remove a small piece of metal from the eye, electric bur utilized for residual rust ring, rust ring was minimized with small residual, patient will follow up with Dr. Siegel on Monday, rn social services referral placed to help with appointment time. Antibiotics prescribed, patient was instructed on tetanus, tetanus is deadly, I did advise tetanus will kill him if he were to become infected. Tetanus toxoid was offered, he declined stated it was against his druze. Vital Signs: Vital signs: Vital Signs Temperature 98.2 F 01/16/21 10:59 Pulse Rate 88 01/16/21 10:59 Respiratory Rate 18 01/16/21 10:59 Blood Pressure 119/87 01/16/21 10:59 Pulse Oximetry 98 01/16/21 10:59 Discharge Plan Discharge Patient Disposition: Home Clinical Impression: Foreign body in eye Qualifiers: Encounter type: initial encounter Laterality: right Qualified Code(s): T15.91XA - Foreign body on external eye, part unspecified, right eye, initial encounter Abrasion, corneal Qualifiers: Encounter type: initial encounter Laterality: right Qualified Code(s): S05.01XA - Injury of conjunctiva and corneal abrasion without foreign body, right eye, initial encounter Condition: Stable Prescriptions: No Action No Known Home Medications RF: 0 Discharge Orders: Discharge ED (Routine); Ordered 01/16/21 Ordered By: Valery Sy Discharge Diet: Usual diet Discharge Activity: Resume usual activity Patient Instructions: Corneal Abrasion (ED), Eye Foreign Body (ED), Opioid Safety Activity Restrictions/Additional Instructions: Continue antibiotic eyedrops, 1 drop to the right eye every 4 hours while awake, complete the 6 times a day for 7 days May take Tylenol/ibuprofen as directed on bottle as needed for eye pain Follow-up with Dr. Siegel on Monday without fail for recheck You have refused tetanus shot today, tetanus is deadly, if you decide you would like to have a tetanus shot, you can contact the [facility] department in [place] for tetanus shot or return to the emergency department Keep the right eye moist with moisturizing eyedrops, apply moisturizing eyedrops to the right eye such as refresh eyedrops by [employer], apply every hour Avoid the bright sun to help with pain. Coding Level of Care Code ED [employer] for Nehemiah Fwd Exam Comprehensive
[2021-01-16] MEDS: acetaminophen 500 mg Tablet 1000 MG PO (11:57)
[2021-01-16] MEDS: eye irrigation 30 mL Btl EYE-BOTH (11:59)
[2021-01-16] MEDS: eye irrigation 30 mL Btl EYE-RIGHT (11:59)
[2021-01-16] MEDS: fluorescein 1 mg Strip EYE-RIGHT (12:00)
[2021-01-16] MEDS: tetracaine 0.5% Op Soln 4 mL Btl 1 DROP EYE-RIGHT (12:00)
[2021-01-16] MEDS: polymyxin-trimethoprim Op Soln 10 mL Btl 1 DROP EYE-RIGHT (12:08)
--- NOTE | 2021-01-18 09:12 | DCPLANNER ---
Addendum entered by Nelly Avila 01/19/21 12:12: Patient has a follow up appointment scheduled for Wednesday, January 20, [address] at 4:[address] Siegel. Clinic will call patient with appointment information. Original Note: in flight refueling manager had message to schedule a follow up appointment for patient with Dr. Siegel. in flight refueling manager faxed patients information to the office of Dr. Siegel, and called the office and let them know that patients information had been faxed for the physician to review. Clinic will call patient with appointment information.
--- NOTE | 2021-04-14 08:51 | DCPLANNER ---
Patient had a follow up appointment with Dr. Siegel, patient did attend the appointment.
== END 2021-01-16 12:12 | disposition home or self-care (01) ==
PROVIDERS: Emergency Provider Nurse Practitioner Family
DX: T15.01XA Foreign body in cornea, right eye, initial encounter (principal); Z87.891 Personal history of nicotine dependence; X58.XXXA Exposure to other specified factors, initial encounter
CPT/HCPCS: 99283

== ENCOUNTER 2021-04-20 18:47 | Inpatient (IN) | payer MEDICAID, SELFPAY ==
[2021-04-20 19:30] VITALS: BP 127/88; PULSE 92; RESP 18; TEMP 36.7; O2SAT 100; BMI 20.7
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
[2021-04-20 20:08] LABS: Basophils # 0.1 10^3/uL (0.0-0.1); Basophils % 1.4 %; Eosinophils # 0.2 10^3/uL (0.0-0.8); Eosinophils % 2.4 %; Hematocrit 40.1 % (42.0-52.0); Hemoglobin 13.3 g/dL (11.7-16.6); Lymphocytes # 2.3 10^3/uL (0.8-4.8); Lymphocytes % 37.5 %; Mean Corpuscular HGB Conc 33.2 g/dL (30.0-36.0); Mean Corpuscular Hemoglobin 30.2 pg (28.0-34.0); Mean Corpuscular Volume 90.9 fL (80-94); Monocytes # 0.4 10^3/uL (0.2-0.9); Monocytes % 5.9 %; Neutrophils # 3.27 10^3/uL (1.8-7.7); Neutrophils % 52.6 %; Nucleated Red Blood Cells % 0 %; Platelet Count 271 10^3/cmm (130-400); Red Blood Count 4.41 10^6/uL (4.1-5.3); Red Cell Distribution Width 11.9 % (12.1-15.1); White Blood Count 6.2 10^3/uL (4.0-10.0)
[2021-04-20 20:25] LABS: Alanine Aminotransferase 19 U/L (0-41); Albumin Level 4.7 g/dL (3.5-5.2); Alkaline Phosphatase 66 IU/L (40-130); Anion Gap 13.9 (5-19); Aspartate Amino Transferase 21 U/L (0-40); Blood Urea Nitrogen 10 mg/dL (6-20); Calcium 9.2 mg/dL (8.5-10.5); Carbon Dioxide 28 mmol/L (22-29); Chloride 104 mmol/L (98-107); Globulin 2.6 g/dL (1.3-4.6); Glomerular Filtration Rate 109.4 mL/min (90-130); Glucose 106 mg/dL (65-115); Osmolality Calculated 293 mOsm/kg (285-295); Potassium 3.9 mmol/L (3.5-5.1); Salicylate 0.6 mg/dL (3-10); Sodium 142 mmol/L (136-145); Total Bilirubin 0.7 mg/dL (0.15-1.2); Total Protein 7.3 g/dL (6.6-8.7)
[2021-04-20 20:26] LABS: Acetaminophen < 5.0 ug/mL (10-30); Alcohol Level < 10 mg/dL (0-10)
[2021-04-20 21:49] VITALS: RESP 16
[2021-04-20 22:00] VITALS: BP 132/93; PULSE 82; RESP 18; TEMP 36.4; O2SAT 93
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
[2021-04-21 06:00] VITALS: BP 98/65; PULSE 66; RESP 16; TEMP 36.6; O2SAT 99
--- NOTE | 2021-04-21 09:28 | PC.NUTR ---
Nutrition consult d/t allergy to pork/pork products. Interviewed pt regarding meal preferences. States he avoids milk (soy or dairy milk), eggs, and other animal products, with exception of cheese. Drinks bottled water instead of tap water. Pt reports he does not want the Beneprotein added to his meals. Contacted Dr. Flowers and received verbal order to modify diet order according to pt preferences. See full RD assessment for further details.
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
[2021-04-21 14:00] VITALS: BP 102/70; PULSE 76; RESP 18; TEMP 36.8; O2SAT 98
--- NOTE | 2021-04-21 21:00 | PC.NURSE ---
Conversation Pt denies SI/HI/AH/VH, however, he is paranoid. Pt believes that he has implanted chip behind his eye lid that tracks his movements, told nursing staff that he needs an x-ray of his hip, that he does not have sciatica, he has something that picks up radio waves and makes him hurt when they turn it on. This is how they control my movements and track me. Pt is questioning the legality of his sisters immigration status and citizenship to the [facility] from [place] in 1992 when they moved here. Pt states, Her social security card is different from mine and says work only. I am not sure she is the sister that I was born to have, she may be a plant to keep track of me and my family, maybe she infiltrated as a spy. He believes that his family is involved in unsavory practices regarding children, named [employer] . Pt states, I just want to get away from here and don't want to be any part of whatever business plans my mother is involved in. Pt talks about his 4 children. States that he wants to get away from the family so his Mother will not put them in her women's business, that I am supposed to stay out of. Pt states, I just need to get back to work, get out of here. Even my girlfriend is believing my family now. I tried to show here facts about her own family and she will not listen, I can not save her, she is on her own, fuck this shit. Pt began to share his yazidism views as a , [employer] member. Pt shared some of his core beliefs in conversation, believes that the [place] version of the Bible is not a complete work, it is man made, that there is more to know.Pt talked about how there were multiple GODs and multiple tribes, referring to scripture, Let us make man in our image. Pt went on to talk about how the fall of mankind in the [place] shows there were other people on Earth. Pt jumped from topic to topic, often times one word or sentence would lead into another form of conspiracy thoughts or paranoid delusions gained from his own insight which is not clear. Very interesting conversationalist, well spoken, but delusional.
[2021-04-21 22:00] VITALS: BP 102/70; PULSE 76; RESP 17; TEMP 36.8; O2SAT 98
[2021-04-22 06:00] VITALS: BP 96/59; PULSE 59; RESP 17; TEMP 36.7; O2SAT 98
[2021-04-22 14:00] VITALS: BP 105/67; PULSE 63; RESP 18; TEMP 36.4; O2SAT 100
--- NOTE | 2021-04-22 17:25 | PM.NPN ---
Subjective NPU Subjective: Interval history: Interval history: I discussed the case with Dr. Flowers and the team, and met with the patient in the day area in the afternoon. He continues to describe that there are no issues or problems. He has managed being kept without a desire for being here fairly well without concerns. He continues to identify that he is not interested in a medication trial and feels that he has approaches to stay healthy that he can utilize and that he just needs to avoid some of the individuals that have been challenging to him. In talking with the evening nurse, Lazara, she reports that he tells her that there have been devices implanted inside him. He feels that his sister who came from [place] is an impostor, because she has a different Social Security number. On the other hand, the patient is able to hold it together relatively well here. It could be that his paranoia comes from his meth use, and clears when he stops using here in the hospital. We will consider discharge tomorrow if he continues to show no signs of acute psychosis or distress. Mental Status Exam MSE Comments: This is a slender white male in hospital scrubs with adequate grooming and eye contact. No abnormal movements noted. No psychomotor agitation or retardation. Cooperative with exam in no acute distress. Speech was at a regular rate, rhythm and volume. Mood described as all right, and he denies feeling depressed, worried, or angry. Thoughts organized, thought content: Patient denied suicidal or homicidal ideation, he reports no delusions but the nurse has observed delusional ideation, he denied auditory or visual hallucinations but family reports that he hears hearing voices from time to time. Attention and concentration appeared intact and memory is unreliable but may be purposefully so, but none were formally tested. He is alert and oriented times person and place. Insight and judgment are impaired, impulse control is impaired. Vitals/I&O/Wt Last Vital Signs Temp 98.4 F 04/23/21 06:00 Pulse 66 04/23/21 06:00 Resp 19 H 04/23/21 06:00 BP 102/64 04/23/21 06:00 Pulse Ox 99 04/23/21 06:00 Data NPU : 04/20/21 19:55 04/20/21 19:55 A&P Additional A&P Information This is a 35-year-old white male of [place] descent who presents denying all symptoms, downplaying his drug use and on a 96-hour hold that suggests psychotic behavior and hallucinations, hearing voices and destructive erratic behavior with significant paranoia. 1. Continue current medication. We will explore whether we can encourage him to try medication but he is very insistent that he is very particular about what he puts in his body and does not feel he needs any medication because he denies anything is wrong with him. 2. Continue every 15 minute checks for safety. 3. Encourage individual, group and milieu therapies. 4. Encourage sober living treatment after discharge at the highest level of care to which he is willing to commit. 5. We will attempt to get collateral information. 6. Consider discharge if he remains behaviorally stable here. Involuntary Hold Information 96 Hour Hold: 96 Hour Involuntary Admission: Yes 96 Hour Hold Ending Date: 04/26/21 96 Hour Hold Ending Time: 19:58 Attestations NPU Medical Necessity Statement*: Inpatient hospitalization is medically necessary and the clinically appropriate intervention at this time, as the patient has delusional ideas which he is not willing to talk to the physician about. We will monitor medications and make changes as indicated. Likely length of stay 1-3 days. We will evaluate for appropriateness of continued hospitalization given the 96-hour hold. Coding Level of Care Code Acute Central Office Repairer Supervisor for Nehemiah Neely
[2021-04-22 18:27] LABS: Amphetamines Screen Urine Positive (Negative); Barbiturates Screen Urine Negative (Negative); Benzodiazepines Screen Urine Negative (Negative); Cocaine Screen Urine Negative (Negative); Opiate Screen Urine Negative (Negative); PCP Screen Urine Negative (Negative); THC Screen Urine Negative (Negative)
[2021-04-22 20:35] VITALS: BP 108/74; PULSE 73; RESP 20; TEMP 37.4; O2SAT 99
[2021-04-22] MEDS: hyDROXYzine 25 mg Capsule 50 MG PO (21:51)
--- NOTE | 2021-04-22 21:55 | PC.NURSE ---
Vistaril 50mg given for anxiety / sleep / Lindy Wade on middle finger of right hand.
[2021-04-23 06:00] VITALS: BP 102/64; PULSE 66; RESP 19; TEMP 36.9; O2SAT 99
[2021-04-23 14:00] VITALS: BP 97/60; PULSE 76; RESP 16; TEMP 36.7; O2SAT 98
--- NOTE | 2021-04-23 15:02 | PM.NPN ---
Subjective NPU Subjective: Interval history: I met with the patient in the day room. He said his mood has been all right, and he has been sleeping okay. Appetite is increased, and energy and motivation are normal. He says he is feeling more hopeful. He is denying auditory visual hallucinations. No suicidal or homicidal ideation. He does say that he still feels that his family is excluding me out of something. He says this is not bothering him as much as it was before. We talked about his methamphetamine use. He says that he will snort 2 small lines in a day, and does this every 3 or 4 days. He says that it makes him more focused, helps him notice more details, and increases his understanding of his situation and life in general. We talked about the relationship between methamphetamine and paranoia. In his estimation, methamphetamine does not cause him a problem, he has no psychosis, and therefore does not need to change his behavior. I also educated him about the possibility of a sudden increase in his cravings for methamphetamine, and he understands this is a possibility. The patient continues to refuse medication for psychosis. Mental Status Exam MSE Comments: This is a tall thin and pleasant gentleman who is cooperative with the exam, though he is mostly dismissive of perspectives that his methamphetamine use causes any problem. No psychomotor agitation or retardation. Speech is at a regular rate and rhythm without pressure. He is alert and oriented to person and situation. Attention and concentration are intact to exam. Memory is adequate for the exam. Mood is improved. Affect is pleasant. Thought process: Logical and goal-directed, but with denial that he has any problems. Thought content: He continues to have evidence of some paranoid delusions, but is guarded in revealing them. He denies auditory and visual hallucinations. He denies suicidal and homicidal ideation. Insight and judgment are somewhat limited by his denial of problems Vitals/I&O/Wt Last Vital Signs Temp 98.1 F 04/24/21 11:35 Pulse 62 04/24/21 11:35 Resp 15 04/24/21 11:35 BP 104/67 04/24/21 11:35 Pulse Ox 97 04/24/21 11:35 Data NPU : 04/20/21 19:55 04/20/21 19:55 A&P Assessment and plan (1) Methamphetamine abuse: Status: Acute (2) Cluster A personality disorder: Status: Acute (3) Methamphetamine-induced psychotic disorder: Status: Acute Additional A&P Information This is a 35-year-old white male of [place] descent who presents denying all symptoms, downplaying his drug use and on a 96-hour hold that suggests psychotic behavior and hallucinations, hearing voices and destructive erratic behavior with significant paranoia. 1. Continue current medication. We will explore whether we can encourage him to try medication but he is very insistent that he is very particular about what he puts in his body and does not feel he needs any medication because he denies anything is wrong with him. 2. Continue every 15 minute checks for safety. 3. Encourage individual, group and milieu therapies. 4. Encourage sober living treatment after discharge at the highest level of care to which he is willing to commit. 5. We will attempt to get collateral information. 6. Consider discharge if he remains behaviorally stable here. Since he still has some evidence of paranoia today, we will keep him for another day. Involuntary Hold Information 96 Hour Hold: 96 Hour Involuntary Admission: Yes 96 Hour Hold Ending Date: 04/26/21 96 Hour Hold Ending Time: 19:58 Attestations NPU Medical Necessity Statement*: Inpatient hospitalization is medically necessary and the clinically appropriate intervention at this time, as the patient has delusional ideas which he is not willing to talk to the physician about. We will monitor medications and make changes as indicated. Likely length of stay 1-2 days. We will evaluate for appropriateness of continued hospitalization given the 96-hour hold. 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
[2021-04-23 22:00] VITALS: BP 108/70; PULSE 84; RESP 18; TEMP 37; O2SAT 96
[2021-04-24 06:00] VITALS: BP 104/67; PULSE 62; RESP 15; TEMP 36.7; O2SAT 97
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
[2021-04-24 11:35] VITALS: BP 104/67; PULSE 62; RESP 15; TEMP 36.7; O2SAT 97
== END 2021-04-24 12:11 | disposition home or self-care (01) | DRG 897 ==
LOC: ER 19:59 → NP 04-21 05:59
PROVIDERS: Admitting Provider Psychiatry & Neurology Psychiatry; Emergency Provider Emergency Medicine; Visit Provider Psychiatry & Neurology Child & Adolescent Psychiatry
DX: F15.151 Other stimulant abuse with stimulant-induced psychotic disorder with hallucinations (principal); Z87.891 Personal history of nicotine dependence; F60.89 Other specific personality disorders
CPT/HCPCS: 80053; 80306; 80307; 85025; 99285

== ENCOUNTER 2022-07-15 20:22 | Emergency (ER) | payer MEDICAID, SELFPAY ==
[2022-07-15 20:30] VITALS: BP 100/64; PULSE 104; RESP 14; TEMP 36.2; O2SAT 100
--- NOTE | 2022-07-15 20:40 | XRR_ITS ---
PROCEDURE INFORMATION: Exam: XR Chest Exam date and time: 07/15/2022 8:49 PM Age: 37 years old Clinical indication: Chest wall pain; Additional info: Chest pain TECHNIQUE: Imaging protocol: Radiologic exam of the chest. Views: 1 view. COMPARISON: CR XR acute abdomen series [id number] 08/18/2019 4:43 AM FINDINGS: Lungs: Unremarkable. No consolidation. Pleural spaces: Unremarkable. No pleural effusion. No pneumothorax. Heart/Mediastinum: Unremarkable. No cardiomegaly. Bones/joints: Unremarkable. XR/XR chest 1V portable [id number] IMPRESSION: No acute findings.
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
[2022-07-15 21:07] VITALS: BP 100/64; PULSE 107; RESP 14; O2SAT 97
[2022-07-15 21:21] VITALS: BP 100/64; PULSE 107; RESP 14; O2SAT 97
== END 2022-07-15 21:22 | disposition home or self-care (01) ==
PROVIDERS: Emergency Provider Emergency Medicine
DX: S20.219A Contusion of unspecified front wall of thorax, initial encounter (principal); Y35.893A Legal intervention involving other specified means, suspect injured, initial encounter; Z87.891 Personal history of nicotine dependence
CPT/HCPCS: 71045; 99283